=== PATIENT | female | born 1980 | race Caucasian/White ===

== ENCOUNTER 2018-06-09 14:14 | Emergency (ER) | END 2018-06-09 17:08 | disposition home or self-care (01) ==

== ENCOUNTER 2018-12-15 19:36 | Emergency (ER) | payer OTHER ==
[~2018-12-15] VITALS: Ht 154.9 cm; Wt 93.3 kg
[~2018-12-15 19:36] MED LIST: AMOX500C6; IBUP-1542 PO; PSEU1TAB
[2018-12-15 19:39] VITALS: Ht 154.9 cm; Wt 93.3 kg
--- NOTE | 2018-12-15 22:50 | ERD ---
ER Documentation Chief Complaint Chief Complaint C/O MEDIAL AP W/ VOMITING AND DIARRHEA SINCE THIS MORNING HPI The patient is a 38-year-old female, presenting to the ER because of diffuse abdominal discomfort, nausea, vomiting, diarrhea today. Denies hematemesis/hematochezia, fever, chills, neck pain, chest pain, dyspnea, dysuria. She does not smoke, drink Past medical history: SLE, fibromyalgia, hypertension Past surgical history: Cholecystectomy ROS All systems reviewed and are negative except as per history of present illness. Medications Home Meds Active Scripts Ondansetron (Ondansetron Odt) 4 Mg Tab.rapdis, 4 MG PO Q6H PRN for NAUSEA AND/OR VOMITING, #14 TAB Prov:ROSANA MCKOY MD 12/16/18 Loperamide Hcl* (Imodium*) 2 Mg Capsule, 2 MG PO .AFTER EA LOOSE BM PRN for DIARRHEA, #10 TAB Prov:ROSANA MCKOY MD 12/16/18 Discontinued Reported Medications Pseudoephedrine Hcl/Chlor-Mal (Pseudoephedrine Cold Tablet) 1 Tab Tablet 12/10/10 Amoxicillin* (Amoxil*) 500 Mg Capsule 12/10/10 [None] No Conflict Check 12/10/10 Discontinued Scripts Ibuprofen* (Motrin*) 600 Mg Tab, 600 MG PO Q6, #30 TAB Prov:MIKAL PERKINS PA-C 06/09/18 Allergies Allergies: Coded Allergies: No Known Drug Allergies (Unverified Allergy, Mild, 12/16/18) PMhx/Soc History of Surgery: Yes (GALL BLADDER REMOVED 1995) Anesthesia Reaction: No Hx Neurological Disorder: No Hx Respiratory Disorders: No Hx Cardiac Disorders: No Hx Psychiatric Problems: No Hx Miscellaneous Medical Probl: No Hx Alcohol Use: No Hx Substance Use: No Hx Tobacco Use: No Physical Exam Vitals Vital Signs Date Temp Pulse Resp B/P (MAP) Pulse Ox O2 O2 Flow FiO2 Time Delivery Rate 12/16/18 100.0 74 18 117/84 100 Room Air 01:40 (95) 12/15/18 100.4 80 19 129/95 100 19:39 (106) Physical Exam Const: No acute distress. Head: Atraumatic. Eyes: Normal Conjunctiva. ENT: Normal External Ears, Nose and Mouth. Neck: Full range of motion. No meningismus. Resp: Clear to auscultation bilaterally. Cardio: Regular rate and rhythm. Abd: Soft, non distended, normal bowel sounds, diffuse abdominal mild tenderness, no rigidity/rebound/CVA tenderness Skin: No petechiae or rashes. Back: No midline or flank tenderness. Ext: No cyanosis, or edema. Neur: Awake and alert. No focal deficit Psych: Normal Mood and Affect. Result Diagram: 12/15/18224212/15/182242 Results 24 hrs Laboratory Tests Test 12/15/18 22:43 12/15/18 22:53 12/15/18 22:54 White Blood Count 11.3 10^3/ul Red Blood Count 5.09 10^6/ul Hemoglobin 14.8 g/dl Hematocrit 43.4 % Mean Corpuscular Volume 85.3 fl Mean Corpuscular Hemoglobin 29.1 pg Mean Corpuscular 34.1 g/dl Hemoglobin Concent Red Cell Distribution Width 12.9 % Platelet Count 246 10^3/UL Mean Platelet Volume 9.9 fl Immature Granulocytes % 0.300 % Neutrophils % 83.8 % Lymphocytes % 8.7 % Monocytes % 6.7 % Eosinophils % 0.4 % Basophils % 0.1 % Nucleated Red Blood Cells % 0.0 /100WBC Immature Granulocytes # 0.030 10^3/ul Neutrophils # 9.4 10^3/ul Lymphocytes # 1.0 10^3/ul Monocytes # 0.8 10^3/ul Eosinophils # 0.1 10^3/ul Basophils # 0.0 10^3/ul Nucleated Red Blood Cells # 0.0 10^3/ul Sodium Level 138 mmol/L Potassium Level 3.6 mmol/L Chloride Level 102 mmol/L Carbon Dioxide Level 28 mmol/L Anion Gap 8 Blood Urea Nitrogen 11 mg/dl Creatinine 0.62 mg/dl Est Glomerular Filtrat Rate mL/min > 60 mL/min Glucose Level 97 mg/dl Calcium Level 8.9 mg/dl Total Bilirubin 0.8 mg/dl Direct Bilirubin 0.00 mg/dl Indirect Bilirubin 0.8 mg/dl Aspartate Amino Transf (AST/SGOT) 34 IU/L Alanine 19 IU/L Aminotransferase (ALT/SGPT) Alkaline Phosphatase 72 IU/L Total Protein 7.7 g/dl Albumin 4.1 g/dl Globulin 3.60 g/dl Albumin/Globulin Ratio 1.13 Lipase 62 U/L Bedside Urine pH (LAB) 8.5 Bedside Urine Protein (LAB) 1+ Bedside Urine Glucose (UA) Negative Bedside Urine Ketones (LAB) Negative Bedside Urine Blood Trace-lysed Bedside Urine Nitrite (LAB) Negative Bedside Urine Leukocyte Esterase Negative (L POC Beta HCG, Qualitative NEGATIVE Current Medications Medications Dose Sig/Hema Start Time Status Last (Trade) Ordered Route PRN Stop Time Admin Dose Reason Admin 650 mg ONCE ONCE 12/16/18 DC 12/16/18 Acetaminophen PO 01:30 01:28 (Tylenol 12/16/18 01:31 Tab) Loperamide 4 mg ONCE ONCE 12/16/18 DC 12/16/18 HCl PO 01:30 01:28 (Imodium Cap) 12/16/18 01:31 Ondansetron 4 mg ONCE STAT 12/16/18 DC 12/16/18 HCl (Zofran ODT 01:13 01:28 Odt) 12/16/18 01:17 Procedures/[place] [id number] Radiology Main Line: [phone] DIAGNOSTIC IMAGING REPORT Patient: MARIO SOMERS : 1980 Age: 38 Sex: F MR #: [id number] DOS: 12/15/18 2307 Ordering MD: ROSANA MCKOY MD Location: E/R Room/Bed: PROCEDURE: CT abdomen and pelvis without contrast. CLINICAL INDICATION: Abdominal pain. TECHNIQUE: CT scan of the abdomen and pelvis without contrast was performed. Sagittal and coronal reformatted images were obtained from the axial source images. DICOM images are available. One or more of the following dose reduction techniques were used: Automated exposure control, adjustment of the mA and/or kV according to patient size, use of iterative reconstruction technique. CTDI = 19.14 mGy; DLP = 1193.56 mGy-cm COMPARISON: None. FINDINGS: Visualized lower thorax: The lung bases are clear. There is no evidence for pleural effusion. Liver, gallbladder, pancreas and spleen: The liver is normal and size, contour and attenuation. There is no evidence for a liver mass or ductal dilatation. Findings are compatible with prior cholecystectomy. No common bile duct abnormality is demonstrated. The pancreas is unremarkable. The spleen is normal in size. Adrenal glands and genitourinary system: The adrenal glands are normal bilaterally. The kidneys are normal and size, contour and attenuation with no evidence for masses, calculi or hydronephrosis. The ureters are unremarkable. No urinary bladder abnormality is demonstrated. The uterus and adnexa are unremarkable. There is a small amount of free fluid in the posterior cul-de-sac, probably physiologic. Gastrointestinal system: The stomach is normal in caliber with no abnormality of significance. The small bowel is normal in caliber with no ileus, obstruction or wall thickening. The appendix and surrounding fat are within the limits of normal. The colon shows no evidence for wall thickening or acute abnormality. There is no evidence for colitis or diverticulitis. Peritoneum, retroperitoneum, lymph nodes and vessels: The abdominal aorta is normal in caliber. There is no evidence for atherosclerotic calcification. The inferior vena cava is unremarkable. There is no evidence for adenopathy or mass. There is no upper abdominal ascites. No pneumoperitoneum is present Osseous structures and musculoskeletal findings: There is no fracture, lytic or blastic lesion. Lower lumbar facet arthropathy is most pronounced at L 34, L4-5 and L5-S1 central canal stenosis suggested at these levels No muscular abnormality or soft tissue pathology is present. RPTAT:HJJR IMPRESSION: 1. Small amount of free fluid in the posterior cul-de-sac is nonspecific, possibly physiologic. 2. Post cholecystectomy changes. 3. There is no evidence of appendicitis, bowel obstruction, ileus or urinary tract calculus. 4. Degenerative facet arthropathy of the lower lumbar levels with central canal stenosis suspected at L3-4 through L5-S1. Physician Shalini Date Time Electronically viewed and signed by Physician Shalini on 12/16/2018 00:52 JR/ CC: ROSANA MCKOY MD [id number] MEDICAL MAKING DECISION: The patient is a 38-year-old female, presenting with abdominal pain/vomiting/diarrhea of unclear etiology, was treated with Tylenol p.o. for pain, Imodium p.o. for diarrhea and Zofran ODT for nausea with good response, is stable for follow-up The differential diagnoses considered include but are not limited to acute food poisoning, choledocholithiasis, cholangitis, pancreatitis, hepatitis, gastritis, peptic ulcer disease, gastric ulcer, appendicitis, cystitis, diverticulitis, partial small bowel obstruction. Departure Diagnosis: Primary Impression: Abdominal pain Additional Impression: Vomiting and diarrhea Condition: Good Comments She was discharged with Imodium, Zofran I discussed the findings with the patient. I advised the patient to follow-up with the primary physician in about 1-2 days, sooner if needed and return if any concern. Disclaimer: Inadvertent spelling and grammatical errors are likely due to EHR/dictation software use and do not reflect on the overall quality of patient care. Also, please note that the electronic time recorded on this note does not necessarily reflect the actual time of the patient encounter. ROSANA MCKOY MD Dec 15, 2018 22:49
[2018-12-16] MEDS ORDERED: ONDANSETRON (ODT) 4 MG TAB ODT STA (01:13)
[2018-12-16] MEDS ORDERED: LOPE2CAP PO (01:15)
[2018-12-16] MEDS ORDERED: ONDA4TAB14 PO (01:15)
[2018-12-16] MEDS ORDERED: ACETAMINOPHEN 325 MG TAB PO ONE (01:30)
[2018-12-16] MEDS ORDERED: LOPERAMIDE 2 MG CAP PO ONE (01:30)
[2018-12-16 01:40] VITALS: BP 117/84; PULSE 74; RESP 18
== END 2018-12-16 01:45 | disposition home or self-care (01) ==
LOC: E/R 19:36
DX: R10.84 Generalized abdominal pain (principal); R19.7 Diarrhea, unspecified; R11.2 Nausea with vomiting, unspecified; I10 Essential (primary) hypertension
CPT/HCPCS: 36415; 74176; 80053; 81003; 81025; 83690; 85025; Z7502; Z7610

== ENCOUNTER 2019-03-02 21:37 | Emergency (ER) | payer OTHER ==
[~2019-03-02] VITALS: Ht 160 cm; Wt 92.3 kg
[~2019-03-02 21:37] MED LIST changes: -AMOX500C6; -IBUP-1542 PO; +LOPE2CAP PO; +ONDA4TAB14 PO; -PSEU1TAB
[2019-03-02 21:54] VITALS: Ht 160 cm; Wt 92.3 kg
--- NOTE | 2019-03-03 01:40 | ERD ---
ER Documentation Chief Complaint Chief Complaint high blood pressure at home, denies cp or sob. c/o slight headache HPI Patient is a 38-year-old female with past medical history of fibromyalgia, lupus, former drug use, who presents to the ER for concerns of an elevated blood pressure. Patient states today she took duloxetine for the first time as it was prescribed to her for her lupus by her afternoon babysitter Dr. Egan at [facility]. She states after taking this medication she started to feel like she was "getting anxiety". Patient states she "felt heat" and tingling throughout her body. Patient states her blood pressure machine was not working thus she decided to come to the ER because she felt like her blood pressure was elevated. Patient states initially she had a mild headache which has now improved. Sintia ent states her current pain level is a 2 out of 10. Patient denies any associated photophobia, phonophobia, nausea, vomiting, neck pain, neck stiffness, fevers or chills. Patient has no unilateral weakness, slurred speech, difficulty ambulating. Patient denies any chest pain, shortness of breath, left upper extremity pain, dizziness, diaphoresis or LOC. Of note, patient states she was a "ex drug user" and this is the first time she is taking a medication in a long time. Patient states she typically does not like taking medications including [id number]-[id number] medications. ROS All systems reviewed and are negative except as per history of present illness. Medications Home Meds Active Scripts Ondansetron (Ondansetron Odt) 4 Mg Tab.rapdis, 4 MG PO Q6H PRN for NAUSEA AND/OR VOMITING, #14 TAB Prov:ROSANA MCKOY MD 12/16/18 Loperamide Hcl* (Imodium*) 2 Mg Capsule, 2 MG PO .AFTER EA LOOSE BM PRN for DIARRHEA, #10 TAB Prov:ROSANA MCKOY MD 12/16/18 Allergies Allergies: Coded Allergies: No Known Drug Allergies (Unverified Allergy, Mild, 12/16/18) PMhx/Soc History of Surgery: Yes (GALL BLADDER REMOVED 1995) Anesthesia Reaction: No Hx Neurological Disorder: No Hx Respiratory Disorders: No Hx Cardiac Disorders: No Hx Psychiatric Problems: No Hx Miscellaneous Medical Probl: Yes (LUPUS, FIBROMYALGIA) Hx Alcohol Use: No Hx Substance Use: No Hx Tobacco Use: No FmHx Family History: No diabetes Physical Exam Vitals Vital Signs Date Temp Pulse Resp B/P (MAP) Pulse Ox O2 O2 Flow FiO2 Time Delivery Rate 03/03/19 81 21 199/102 100 Room Air 01:40 (134) 03/03/19 82 16 147/78 98 Room Air 00:38 (101) 03/02/19 97.3 90 18 190/84 99 21:54 (119) Physical Exam GENERAL: Well-developed, well-nourished female. Appears in no acute distress. Speaking in full sentences. HEAD: Normocephalic, atraumatic. EYES: Pupils are equally reactive bilaterally. EOMs grossly intact. No conjunctival erythema. ENT: Moist mucous membranes. No uvula deviation. No kissing tonsils. NECK: Supple. No meningismus. Normal range of motion of the neck. LUNG: Clear to auscultation bilaterally. No rhonchi, wheezing, rales or coarse breath sounds. HEART: Regular rate and rhythm. No murmurs, rubs or gallops.. Equal pulses in bilateral upper extremities. EXTREMITIES: Equal pulses bilaterally. No peripheral clubbing, cyanosis or edema. No unilateral leg swelling. NEUROLOGIC: Alert and oriented x3, cooperative. Mood and affect appropriate to situation. Cranial nerves II through XII are grossly intact. Normal speech. Motor exam: 5/5 strength in upper and lower extremities. Sensory exam: Sensation intact to light touch on all four extremities. Cerebellar function exam: Rapid alternating movements intact. No dysmetria on rhwaba-po-vori and alud-iu-ptsb t est. Steady gait. No pronator drift. Equal accounts clerk strength bilaterally. No facial asymmetry. SKIN: Normal color. Warm and dry. No rashes or lesions. Results 24 hrs Current Medications Medications Dose Sig/Hema Start Time Status Last (Trade) Ordered Route PRN Stop Time Admin Dose Reason Admin Nicardipine 30 mg ONCE ONCE 03/03/19 DC 03/03/19 HCl PO 02:00 03/03/19 01:49 (Cardene) 02:01 Procedures/MDM MEDICAL DECISION MAKING: Patient is a 38-year-old female with past medical history of fibromyalgia, lupus, former drug use, who presents to the ER for concerns of an elevated blood pressure after starting duloxetine. Patient states she typically does not like taking medications however she was put on this medication by her afternoon babysitter for lupus. Patient states after taking this medication she started to feel anxious and had paresthesias throughout her body. Those symptoms have improved.. Vital signs were reviewed. Patient is afebrile. Patient was not hypoxic. Initial blood pressure was noted to be 190/84 in triage. Triage nurse rechecked patient's blood pressure and it was noted to be 147/78. Patient's neuro exam was completely normal. Patient had no unilateral weakness, slurred speech, difficulty ambulating. Prior to discharge, patient blood pressure was noted to be elevated again. Blood pressure was noted to be 190/102. At that time, patient was given Cardene [address] brain was ordered and showed no acute abnormality. See formal report. Patient denied previous history of hypertension. Patient was advised to monitor her blood pressures closely and follow-up with her primary care physician. Patient encouraged to keep a log. [facility] to see if her medication can be changed as she states she does not want to be taking duloxetine any longer. Low suspicion for hypertensive urgency or emergency at this time. DISCHARGE: At this time, patient is stable for discharge and outpatient management. I have instructed the patient to follow-up with his/her primary care physician in 1-2 days. I have discussed with the patient the possibility of needing to see a specialist for further workup and imaging studies if symptoms persist. I have instructed the patient to promptly return to the ER for any new or worsening symptoms including increased pain, fever, nausea, vomiting, weakness or LOC. The patient and/or family expressed understanding of and agreement with this plan. All questions were answered. Home care instructions were provided. Patient's blood pressure was elevated (>120/80) but appears stable without evidence of hypertensive emergency, hypertensive urgency or end-organ failure. I had discussion with the patient about the risks of hypertension. I have advised the patient to follow up with his/her primary care physician for outpatient monitoring and treatment for hypertension in 2-3 days. I have instructed the patient to return to the ER for any new or worsening symptoms including chest pain, shortness of breath, headache, blurred vision, confusion, nausea, vomiting or LOC. Departure Diagnosis: Primary Impression: Elevated blood pressure reading Additional Impressions: Fibromyalgia Medication reaction Encounter type: initial encounter Qualified Codes: T50.905A - Adverse effect of unspecified drugs, medicaments and biological substances, initial encounter Condition: Fair Patient Instructions: Hypertension, New (Begin Treatment) Referrals: [facility] YOU HAVE RECEIVED A MEDICAL SCREENING EXAM AND THE RESULTS INDICATE THAT YOU DO NOT HAVE A CONDITION THAT REQUIRES URGENT TREATMENT IN THE EMERGENCY DEPARTMENT. FURTHER EVALUATION AND TREATMENT OF YOUR CONDITION CAN WAIT UNTIL YOU ARE SEEN IN YOUR DOCTORS OFFICE WITHIN THE NEXT 1-2 DAYS. IT IS YOUR RESPONSIBILITY TO MAKE AN APPOINTMENT FOR FOLOW-UP CARE. IF YOU HAVE A PRIMARY DOCTOR --you should call your primary doctor and schedule an appointment IF YOU DO NOT HAVE A PRIMARY DOCTOR YOU CAN CALL OUR PHYSICIAN REFERRAL HOTLINE AT IF YOU CAN NOT AFFORD TO SEE A PHYSICIAN YOU CAN CHOSE FROM THE FOLLOWING [facility] [address] [facility]. [facility] [address] [facility] [address] [facility] [address] [facility] [address] [facility]. [facility] [address] [facility]. [facility] YOU HAVE RECEIVED A MEDICAL SCREENING EXAM AND THE RESULTS INDICATE THAT YOU DO NOT HAVE A CONDITION THAT REQUIRES URGENT TREATMENT IN THE EMERGENCY DEPARTMENT. FURTHER EVALUATION AND TREATMENT OF YOUR CONDITION CAN WAIT UNTIL YOU ARE SEEN IN YOUR DOCTORS OFFICE WITHIN THE NEXT 1-2 DAYS. IT IS YOUR RESPONSIBILITY TO MAKE AN APPOINTMENT FOR FOLOW-UP CARE. IF YOU HAVE A PRIMARY DOCTOR --you should call your primary doctor and schedule and appointment IF YOU DO NOT HAVE A PRIMARY DOCTOR YOU CAN CALL OUR PHYSICIAN REFERRAL HOTLINE AT . IF YOU CAN NOT AFFORD TO SEE A PHYSICIAN YOU CAN CHOSE FROM THE FOLLOWING [facility]: [facility] [address] [place] [address] [facility] [address] [place] [address] [facility] + [facility] [address] [place] [address] Additional Instructions: Monitor blood pressures closely. Keep a log. Follow-up with your primary care physician. Call your afternoon babysitter to discuss possible side effects to duloxetine. Call your primary care doctor TOMORROW for an appointment during the next 1-2 days.See the doctor sooner or return here if your condition worsens before your appointment time. MIKAL PERKINS PA-C March 03, 2019 01:40
[2019-03-03] MEDS ORDERED: NICARDipine HCL 30 MG CAPSULE PO ONE (02:00)
[2019-03-03 04:59] VITALS: BP 155/84; PULSE 83; RESP 18
== END 2019-03-03 05:00 | disposition home or self-care (01) ==
LOC: FTE 21:37
DX: R03.0 Elevated blood-pressure reading, without diagnosis of hypertension (principal); R40.2142 Coma scale, eyes open, spontaneous, at arrival to emergency department; R40.2362 Coma scale, best motor response, obeys commands, at arrival to emergency department; R40.2252 Coma scale, best verbal response, oriented, at arrival to emergency department; M79.7 Fibromyalgia; T43.215A Adverse effect of selective serotonin and norepinephrine reuptake inhibitors, initial encounter
CPT/HCPCS: 70450; Z7502; Z7610